=== PATIENT | female | born 1940 | race Caucasian/White ===

== ENCOUNTER 2016-09-26 11:30 | Day surgery (SDC) | payer MEDICARE, BC ==
[2016-09-21 10:34] LABS: HEMATOCRIT 40.9 % (36.0-47.0); HEMOGLOBIN 13.9 g/dL (12.0-15.5); HGB HCT DIFFERENCE 0.8; MEAN CORPUSCULAR HEMOGLOBIN 29.7 pg (27.0-33.4); MEAN CORPUSCULAR HGB CONC 34.1 g/dL (32.0-36.0); MEAN CORPUSCULAR VOLUME 87 fl (80-97); RED BLOOD COUNT 4.69 10^6/uL (3.72-5.28); RED CELL DISTRIBUTION WIDTH 13.7 % (11.5-14.0)
[2016-09-21 11:00] LABS: ANION GAP 12 (5-19); BLOOD UREA NITROGEN 16 mg/dL (7-20); CALCIUM 9.1 mg/dL (8.4-10.2); CARBON DIOXIDE 30 mmol/L (22-30); CHLORIDE 98 mmol/L (98-107); CREATININE RESULT 1.15 mg/dL (0.52-1.25); GLUCOSE 94 mg/dL (75-110); SODIUM 139.6 mmol/L (137-145)
[~2016-09-26 11:30] MED LIST: CEFAZOLIN SODIUM 1 GM in DEXTROSE 5%-WATER 50 ML IV PRN; LACTATED RINGERS 1000 ML IV PRN; LIDOCAINE 0.5% INJ-PF (5 MG/ML) 50 ML SDV SUBCUT PRN; LIDOCAINE 2% INJ (20 MG/ML) 20 ML MDV ONE
[2016-09-26] MEDS ORDERED: MICROFIBRILLAR COLLAGEN 1 GM PACK ONE (13:09)
[2016-09-26] MEDS ORDERED: LIDOCAINE 1%/EPINEPHRINE INJ 20 ML VIAL ONE (13:09)
[2016-09-26] MEDS ORDERED: FENTANYL CITRATE INJ/PF 100 MCG/2 ML AMPUL ONE ×2 (13:30)
[2016-09-26] MEDS ORDERED: DEXMEDETOMIDINE INJ 80 MCG/20 ML VIAL IV ONE (13:31)
[2016-09-26] MEDS ORDERED: PROPOFOL INJ 200 MG/20 ML VIAL IV ONE (13:31)
[2016-09-26] MEDS ORDERED: MIDAZOLAM 2 MG/2 ML INJ ONE (13:31)
[2016-09-26] MEDS ORDERED: MORPHINE SULFATE 10 MG/ML INJ ONE (13:32)
[2016-09-26] MEDS ORDERED: MORPHINE SULFATE 10 MG/ML INJ IV PRN (14:33)
[2016-09-26] MEDS ORDERED: MEPERIDINE HCL/PF INJ 25 MG/1 ML DISP.SYRIN IV PRN (14:33)
[2016-09-26] MEDS ORDERED: OXYCODONE-ACETAMINOPHEN 5-325 MG TABLET PO PRN ×4 (14:33→14:54)
[2016-09-26] MEDS ORDERED: FENTANYL CITRATE INJ/PF 100 MCG/2 ML AMPUL IV PRN ×3 (14:33)
[2016-09-26] MEDS ORDERED: PROMETHAZINE HCL INJ 25 MG/1 ML VIAL IV PRN ×2 (14:33)
[2016-09-26] MEDS ORDERED: DIPHENHYDRAMINE HCL 50 MG/ML VIAL IV PRN (14:33)
[2016-09-26] MEDS ORDERED: ONDANSETRON HCL INJ/PF 4 MG/2 ML SDV IV PRN (14:54)
--- NOTE | 2016-09-26 14:59 | PDOC DISCHARGE SUMMARY ---
Discharge Summary (SDC) - Discharge Final Diagnosis: Atypical ductal hyperplasia Date of Surgery: 09/26/16 Discharge Date: 09/26/16 Condition: Good Treatment or Instructions: Leave dressing on for 48 hours; resume preoperative medications; wear compressive bra or sports bra; make an appointment to see Dr. Martinez and approximately 1-3 weeks at also surgical clinic Prescriptions: Oxycodone HCl/Acetaminophen [Percocet 5-325 mg Tablet] 1 tab PO ASDIR PRN #15 tab PRN Reason: Discharge Activity: Activity As Tolerated Home Care Assistance: None Needed
--- NOTE | 2016-09-26 15:04 | Operative Report ---
Operative Report DATE OF SURGERY: 09/26/16 PREOPERATIVE DIAGNOSIS: Atypical ductal hyperplasia left breast POSTOPERATIVE DIAGNOSIS: Same OPERATION: Needle localized open left breast biopsy using ultrasound guidance SURGEON: PEARL ARANA SENIOR FIELD SERVICE ENGINEER: ELAN RASHEED ANESTHESIA: LMAC TISSUE REMOVED OR ALTERED: Left breast biopsy with needle and wire and clip COMPLICATIONS: None ESTIMATED BLOOD LOSS: scant INTRAOPERATIVE FINDINGS: See below below PROCEDURE: The patient was seen in the preoperative holding area to undergoing needle localized marking of the clip left in the left breast following stereotactically directed incisional mammotomy core biopsies for atypical ductal hyperplasia. The left breast was marked. The patient taken the operating room where LMAC anesthesia was induced. Left breast was exposed left arm abducted, needle and wire clipped at the patient's skin in the left breast in sterile fashion. Surgical plan surgical timeout were conducted. Real-time ultrasound guidance was used to tract the needle coming from the medial heading towards the more central lateral aspect of the left breast at the inferior quadrant 6 o'clock position approximately 5 cm inferior to the areola. Skin was anesthetized with 1% lidocaine without epinephrine. An approximately 5 cm transverse incision was made over the target location of the clip. A generous lumpectomy specimen was then second after the patient's breast using ultrasound guidance keeping the needle into the center of the dissection specimen . The dissection was performed with electrocautery. Once the specimen was removed, was labeled with sutures short in the superior position long lateral position. The specimen was sent to radiology was imaged and found to contain the needle, wire, and the clip. We felt the operation was complete. We checked carefully bleeding was none. Sponge and counts correct. Breasts closed with 3-0 Vicryl, Dermabond glue. Patient stopped procedure well, taken to recovery in stable condition. The physician assistant county engineer, Ms. Rasheed, provided assistance during this case by: retracting tissue, instillation of local anesthesia and closure of skin incisions.
--- NOTE | 2016-09-26 16:02 | EKG REPORT ---
SEVERITY:- ABNORMAL ECG - SINUS ARRHYTHMIA, RATE 54-84 PROBABLE INFERIOR INFARCT, AGE INDETERMINATE CONSIDER ANTERIOR INFARCT : Confirmed by: Darline Servin 26-Sep-2016 16:01:48
[2016-09-26 16:55] VITALS: BP 146/82
--- NOTE | 2016-09-26 17:45 | WOMENS IMAGING REPORT ---
EXAM DESCRIPTION: WIRE LOC MAMMO COMPLETED DATE/TIME: 09/26/2016 12:20 pm REASON FOR STUDY: N60.99 N60.99 UNSPECIFIED BENIGN MAMMARY DYSPLASIA OF UNSPECIFIED B Z79.899 [facility] (CURRENT) DRUG THERAPY atypical ductal hyperplasia on prior stereotactic biopsy COMPARISON: Stereotactic biopsy and post biopsy mammograms 08/30/2016 TECHNIQUE: The stereotactic clip in the left breast was localized mammographically using a grid mar ker. The skin of the breast was prepped in sterile fashion and local anesthesia was provided. The l ocalization needle was advanced to the target. Initial attempt from medial to lateral approach, the needle tip was over 1 cm from the clip. This needle was removed. The breast was reposition from a medial to lateral orientation in the grid paddle, the stereotactic c lip was localized mammographically using a grid marker. The skin was prepped in sterile fashion and local anesthesia was provided. The needle was advanced to the target. The tip was positioned adjace nt to the target and confirmed with two orthogonal views. Surgical dye was not injected for this proc edure. The wire was placed through the needle and the hook engaged. Post procedure mammogram demonst rates satisfactory position of the needle and wire. Specimen radiograph demonstrates the intact localization wire as well as the targeted lesion within t he biopsy specimen. LIMITATIONS: None. FINDINGS: Procedure as above. Pathology: Pending. TECHNICAL DOCUMENTATION: JOB ID: [id number] [employer]- All Rights Reserved
--- NOTE | 2016-09-27 08:28 | WOMENS IMAGING REPORT ---
EXAM DESCRIPTION: BREAST SPECIMEN COMPLETED DATE/TIME: 09/26/2016 2:58 pm REASON FOR STUDY: N60.99 N60.99 UNSPECIFIED BENIGN MAMMARY DYSPLASIA OF UNSPECIFIED B Z79.899 [facility] (CURRENT) DRUG THERAPY COMPARISON: None. TECHNIQUE: Specimen radiograph from breast procedure performed in the operating room. LIMITATIONS: None. FINDINGS: Specimen radiograph from breast procedure performed in the operating room. Please see procedure note for details and final pathology. TECHNICAL DOCUMENTATION: JOB ID: [id number]
== END 2016-09-26 16:45 | disposition home or self-care (01) ==
LOC: OROUT 11:30
PROVIDERS: ATTEND Surgery
PROC: 0HBU0ZX Excision of Left Breast, Open Approach, Diagnostic (ICD-10-PCS; principal; 2016-09-26 14:00)
DX: C50.912 Malignant neoplasm of unspecified site of left female breast (principal); G47.33 Obstructive sleep apnea (adult) (pediatric); I12.9 Hypertensive chronic kidney disease with stage 1 through stage 4 chronic kidney disease, or unspecified chronic kidney disease; N18.3 Chronic kidney disease, stage 3 (moderate); E78.00 Pure hypercholesterolemia, unspecified; Z79.899 Other long term (current) drug therapy; Z79.82 Long term (current) use of aspirin
CPT/HCPCS: 36415; 85027; 80048; 88307 ×2; 93005; 93010; 19281; 76098; 19101; J2250; J3490 ×3; J0690; J3010; J2704; 400; J2270

== ENCOUNTER 2016-10-31 09:04 | Inpatient (IN) | payer MEDICARE, BC ==
[2016-10-29 13:34] LABS: HEMATOCRIT 41.8 % (36.0-47.0); HEMOGLOBIN 14.1 g/dL (12.0-15.5); HGB HCT DIFFERENCE 0.5; MEAN CORPUSCULAR HEMOGLOBIN 29.6 pg (27.0-33.4); MEAN CORPUSCULAR HGB CONC 33.7 g/dL (32.0-36.0); MEAN CORPUSCULAR VOLUME 88 fl (80-97); RED BLOOD COUNT 4.75 10^6/uL (3.72-5.28); RED CELL DISTRIBUTION WIDTH 13.3 % (11.5-14.0); WHITE BLOOD COUNT 5.6 10^3/uL (4.0-10.5)
[2016-10-29 13:52] LABS: ANION GAP 11 (5-19); BLOOD UREA NITROGEN 16 mg/dL (7-20); CALCIUM 9.2 mg/dL (8.4-10.2); CARBON DIOXIDE 31 mmol/L (22-30); CHLORIDE 99 mmol/L (98-107); CREATININE RESULT 1.22 mg/dL (0.52-1.25); GLUCOSE 80 mg/dL (75-110); POTASSIUM 5.2 mmol/L (3.6-5.0); SODIUM 140.6 mmol/L (137-145)
--- NOTE | 2016-10-29 18:16 | EKG REPORT ---
SEVERITY:- ABNORMAL ECG - ACCELERATED JUNCTIONAL ESCAPE RHYTHM BORDERLINE LEFT AXIS DEVIATION BORDERLINE R WAVE PROGRESSION, ANTERIOR LEADS NONSPECIFIC T ABNORMALITIES, LATERAL LEADS : Confirmed by: Jamie Watts MD 29-Oct-2016 18:15:41
[~2016-10-31 09:04] MED LIST changes: +ACETAMINOPHEN 325 MG TABLET PO PRN; -LACTATED RINGERS 1000 ML IV PRN; -LIDOCAINE 2% INJ (20 MG/ML) 20 ML MDV ONE; +LIDOCAINE 4% TRANSPARENT DRESSING 5 GM KIT TP PRN; +NORMAL SALINE 1000 ML (RENAL PATIENTS) IV PRN
[2016-10-31] MEDS ORDERED: LIDOCAINE 1%/EPINEPHRINE INJ 20 ML VIAL ONE (09:53)
[2016-10-31] MEDS ORDERED: MICROFIBRILLAR COLLAGEN 1 GM PACK ONE (09:53)
[2016-10-31] MEDS ORDERED: METHYLENE BLUE INJ/PF 10 MG/1 ML SDV ONE (09:54)
[2016-10-31] MEDS ORDERED: GLYCOPYRROLATE INJ 0.4 MG/2 ML VIAL ONE (10:25)
[2016-10-31] MEDS ORDERED: DEXAMETHASONE SOD PHOSPHATE INJ 4 MG/1 ML VIAL ONE (10:25)
[2016-10-31] MEDS ORDERED: NEOSTIGMINE METHYLSULFATE 10 MG/10 ML VIAL ONE (10:25)
[2016-10-31] MEDS ORDERED: PHENYLEPHRINE HCL INJ/PF 10 MG/1 ML SDV ONE (10:25)
[2016-10-31] MEDS ORDERED: ONDANSETRON HCL INJ/PF 4 MG/2 ML SDV ONE (10:25)
[2016-10-31] MEDS ORDERED: SUCCINYLCHOLINE CHLORIDE INJ 200 MG/10 ML VIAL ONE (10:25)
[2016-10-31] MEDS ORDERED: FENTANYL CITRATE INJ/PF 250 MCG/5 ML AMPULE ONE (13:22)
[2016-10-31] MEDS ORDERED: PROPOFOL INJ 200 MG/20 ML VIAL IV ONE (13:23)
[2016-10-31] MEDS ORDERED: DEXMEDETOMIDINE INJ 80 MCG/20 ML VIAL IV ONE (13:23)
[2016-10-31] MEDS ORDERED: MIDAZOLAM 2 MG/2 ML INJ ONE (13:23)
[2016-10-31] MEDS ORDERED: OXYCODONE-ACETAMINOPHEN 5-325 MG TABLET PO PRN ×3 (15:05→16:13)
[2016-10-31] MEDS ORDERED: DIPHENHYDRAMINE HCL 50 MG/ML VIAL IV PRN (15:05)
[2016-10-31] MEDS ORDERED: MORPHINE SULFATE 10 MG/ML INJ IV PRN ×2 (15:05→16:13)
[2016-10-31] MEDS ORDERED: PROMETHAZINE HCL INJ 25 MG/1 ML VIAL IV PRN ×2 (15:05)
[2016-10-31] MEDS ORDERED: FENTANYL CITRATE INJ/PF 100 MCG/2 ML AMPUL IV PRN ×3 (15:05)
[2016-10-31] MEDS ORDERED: MEPERIDINE HCL/PF INJ 25 MG/1 ML DISP.SYRIN IV PRN (15:05)
[2016-10-31] MEDS ORDERED: ONDANSETRON HCL INJ/PF 4 MG/2 ML SDV IV PRN (16:13)
--- NOTE | 2016-10-31 16:13 | Operative Report ---
Operative Report DATE OF SURGERY: 10/31/16 PREOPERATIVE DIAGNOSIS: Poorly differentiated invasive left breast cancer, ER positive, AK positive, HER-2 negative POSTOPERATIVE DIAGNOSIS: same OPERATION: 1. Gans lymph node biopsy 6 left axilla. 2. Left mastectomy, with drain placement SURGEON: PEARL ARANA WIND TURBINE ERECTOR: ELAN DOLL ANESTHESIA: GA TISSUE REMOVED OR ALTERED: Gans lymph nodes left axilla 6; left breast COMPLICATIONS: None ESTIMATED BLOOD LOSS: 25 mL INTRAOPERATIVE FINDINGS: See below PROCEDURE: The patient was seen in the preoperative holding area after having gone to the radiology suite for lymphoscintigraphy of the left axilla. Oozing the neoprobe at bedside, we determined that there was radionuclide activity in the axilla consistent with successful uptake. Furthermore the post injection imaging showed mapping of at least 2 sentinel nodes into the left axilla. The patient was subsequent taken to the operating room were general anesthesia was induced. The left arm was abducted left breast exposed. We proceeded to inject the left breast at the areola border 2 o'clock position with approximately 2 mL of methylene blue. The left breast was massaged for 10 minutes. The left breast axilla chest wall were all prepped and draped in a sterile fashion Surgical plan and surgical timeout were conducted. Marking the breast for a planned mastectomy. An elliptical marking was made on the breast encompassing the areola as well as the previous infra-areola lumpectomy incision. A incision was made in the extreme lateral aspect of the planned mastectomy incision. We proceeded with sentinel lymph node harvest. Using the dual mapping technique we harvested a total of 6 sentinel lymph nodes. All these lymph nodes were hot and blue. They were resected in the order they were encountered during this dissection from the lateral aspect of the axilla. Gans lymph node 1: Hot, blue, in vivo count 6536 ex vivo count 36,816 Lymph node 2 ; hot, blue, in vivo count 1771 ex vivo count 9676 Lymph node 3: Blue hot in vivo count 3053 ex vivo count 1 478 Lymph node f4. Blue hot in vivo count 3103, ex vivo count 5989 Lymph node 5: Blue, hot in vivo count 6715, ex vivo count 5989 Gans lymph node 6: Blue hot, ex vivo count 3015; at this point, felt the sentinel lymph node biopsy portion of the procedure was complete. Background counts were negligible. We then performed the mastectomy. The breast was incised at the markings previously tablets. Superior and inferior skin flaps were raised of appropriate thickness. The breast was taken off the chest wall from the sub- pectoral down to the sternum medially, and off the edge of the pectoralis muscle laterally. We took the breast off inferiorly down to the level of the serratus anterior muscle. Specimen was labeled with a long suture in the lateral position short suture in the superior position. Specimen were sent to pathology for permanent analysis. We did hear back from Dr. Mitchell who felt the mastectomy specimen had a least a 1 cm margin from the previous biopsy cavity. A drain was placed in the inferior skin flap, secured with 2-0 Prolene suture, and the mastectomy wound closed with 2-0 Vicryl suture. Postop procedure well appropriate dressings applied with Dermabond skin appliqu. Patient was extubated and taken recovery in stable condition Michelle garcia and Shey Fermin
[2016-10-31] MEDS ORDERED: RINGERS SOLUTION,LACTATED 1,000 ML IV PRN (16:14)
[2016-10-31] MEDS ORDERED: NORMAL SALINE 1000 ML 1,000 ML IV PRN (17:55)
[2016-10-31] MEDS ORDERED: INFLUENZA ADLT QUAD (36MOS+) 2016-17 VAC 0.5 ML SYR IM PRN (18:49)
--- NOTE | 2016-11-01 09:47 | DISCHARGE SUMMARY E ---
Discharge Summary NAME: YENIFER MARTIN : 1940 AGE: 76Y ADMITTED: 10/31/2016 DISCHARGED: 11/01/2016 REASON FOR ADMISSION: Left mastectomy. HOSPITAL COURSE: The patient is a 76-year-old white female status post left breast lumpectomy for ADH; final path returned poorly invasive left breast carcinoma with a positive margin. The patient is now brought back to [facility] for completion mastectomy and sentinel node biopsy. The patient underwent left axillary lymphoscintigraphy followed by left axillary sentinel node biopsy x6 and left mastectomy. She tolerated the procedure well. There were no post procedure complications. On the following morning, she was doing well and felt ready for discharge home. FINAL DIAGNOSES: Invasive left breast cancer, status post sentinel lymph node biopsy and left mastectomy. DISPOSITION: The patient was discharged home in the care of her family. Follow up with Dr. Martinez, [facility] in 1 week. She will be instructed on drain care. She will take Tylenol or Motrin as needed for pain. DICTATING PHYSICIAN: PEARL MARTINEZ M.D. [id number] PHY#: [id number] ID: [id number] JOB#: [id number] ACCT: [id number] cc:PEARL MARTINEZ M.D. > MTDD
[2016-11-01 10:41] VITALS: BP 104/53
== END 2016-11-01 11:00 | disposition home or self-care (01) | DRG 581 ==
LOC: INOR 09:04 → 4S 17:16
PROVIDERS: ADMIT Surgery; ATTEND Surgery
PROC: 07B60ZZ Excision of Left Axillary Lymphatic, Open Approach (ICD-10-PCS; 2016-10-31)
PROC: 0HTU0ZZ Resection of Left Breast, Open Approach (ICD-10-PCS; principal; 2016-10-31 12:45)
DX: C50.912 Malignant neoplasm of unspecified site of left female breast (principal); I12.9 Hypertensive chronic kidney disease with stage 1 through stage 4 chronic kidney disease, or unspecified chronic kidney disease; N18.3 Chronic kidney disease, stage 3 (moderate); E78.5 Hyperlipidemia, unspecified; G47.33 Obstructive sleep apnea (adult) (pediatric); Z17.0 Estrogen receptor positive status [ER+]; Z79.82 Long term (current) use of aspirin
CPT/HCPCS: 1610; 36415; 78195; 80048; 84132; 85027; 88307; 88341; 88342; 93005; 93010; 88329; A9541; J0330; J0690; J1100; J2250; J2370; J2405; J2704; J3010; J3490; Q9968

== ENCOUNTER → 2017-11-19 | Outpatient (CLI) | payer MEDICARE, BC ==
--- NOTE | 2017-11-19 11:33 | WOMENS IMAGING REPORT ---
EXAM DESCRIPTION: BONE DENSITY HIP/SPINE COMPLETED DATE/TIME: 11/19/2017 10:37 am REASON FOR STUDY: ASYMPTOMATIC MENOPAUSAL STATE; Z78.0 Z78.0 ASYMPTOMATIC MENOPAUSAL STATE COMPARISON: 02/23/2011 TECHNIQUE: Dual-Energy X-ray Absorptiometry (DEXA) of the AP Spine and Hip. LIMITATIONS: None. FINDINGS: LUMBAR SPINE: The bone mineral density (BMD) measured from L1-L4 in the AP projection correlates with a T-score of -0.2, which is normal as defined by the World Health Organization. +2.1% change since prior study. HIP: The bone mineral density (BMD) measured in the left hip correlates with a T-score of -2.5 in the femo ral neck, which is borderline osteoporosis as defined by the World Health Organization. -9.4% change since prior study. IMPRESSION: 1. LUMBAR SPINE: NORMAL. 2. HIP: Borderline osteoporosis. COMMENT: The World Health Organization defines low BMD as follows: T-score: Normal: Greater than -1.0 Osteopenia: Between -1.0 and -2.5 Osteoporosis: Less than -2.5 without fractures Established osteoporosis: Less than -2.5 with fractures In general, you may wish to consider: Diagnosis Treatment Follow-up DEXA Normal BMD Prevention 2-3 years Osteopenia Prevention/Therapy 1-2 years Osteoporosis Therapy Yearly TECHNICAL DOCUMENTATION: JOB ID: [id number] [employer]- All Rights Reserved Reading location - IP/workstation name: [email or web address]
== END ==
LOC: WI 09:43
PROVIDERS: ATTEND Family Medicine
DX: Z78.0 Asymptomatic menopausal state (principal); M81.0 Age-related osteoporosis without current pathological fracture
CPT/HCPCS: 77080

== ENCOUNTER → 2018-02-13 | Outpatient (CLI) | payer MEDICARE, BC ==
--- NOTE | 2018-02-13 15:01 | RADIOLOGY REPORT (SQ) ---
EXAM DESCRIPTION: HIP RIGHT AP/LATERAL COMPLETED DATE/TIME: 02/13/2018 11:55 am REASON FOR STUDY: PAIN IN R HIP M25.551 PAIN IN RIGHT HIP COMPARISON: None. NUMBER OF VIEWS: Two views. TECHNIQUE: AP pelvis and additional frog-leg view of the right hip. LIMITATIONS: None. FINDINGS: MINERALIZATION: Normal. RIGHT HIP: Internal fixation of a prior fracture. There is long medullary erik extending almost to th e knee and there is a long cannulated screw extending through the femoral neck. Joint space is maint ained. No acute abnormality. LEFT HIP: No fracture or dislocation. No worrisome bone lesions. PUBIS AND ISCHIUM: No fracture. PELVIS: No fracture. SACRUM: No fracture or dislocation. No worrisome bone lesions. LOWER LUMBAR SPINE: No fracture or dislocation. No worrisome bone lesions. No significant disc disea se. SOFT TISSUES: No findings. OTHER: No other significant finding. IMPRESSION: Internal fixation of a prior right hip fracture. No acute abnormality. TECHNICAL DOCUMENTATION: JOB ID: [id number] [employer]- All Rights Reserved Reading location - IP/workstation name: [email or web address]
== END ==
LOC: RAD 11:19
PROVIDERS: ATTEND Internal Medicine
DX: M25.551 Pain in right hip (principal)

== ENCOUNTER → 2018-11-06 | Outpatient (CLI) | payer MEDICARE, BC ==
--- NOTE | 2018-11-06 13:13 | XCELERA REPORT ---
[address] [place] [facility] [address] Lower Extremity Venous Evaluation Procedure: Color flow and duplex imaging of the veins of the left lower extremity as well as the right Common Femoral vein. Right Sided Venous Evaluation The right common femoral vein is fully compressible. Spontaneous and phasic flow is present in the right common femoral vein. Left Sided Venous Evaluation Normal vessel filling wall to wall, compression and augmentation as well as Colour flow down to the infrageniculate veins. Interpretation Summary No duplex evidence of DVT or obstruction in the left lower extremity nor in the right Common Femoral vein. Name: YENIFER MARTIN Age: 78 yrs Gender: Female : 1940 Patient Status: Outpatient Patient Location: Study Date: 11/06/2018 12:30 PM Reason For Study: LLE SWELLING Ordering Physician: SERINA STOKES Performed By: Eva Joya : SERINA STOKES > Derrell Reagan
== END ==
LOC: SP 11:39
PROVIDERS: ATTEND Orthopaedic Surgery
DX: R22.42 Localized swelling, mass and lump, left lower limb (principal)
CPT/HCPCS: 93971

== ENCOUNTER → 2019-03-04 | Outpatient (CLI) | payer MEDICARE, BC ==
--- NOTE | 2019-03-04 10:00 | WOMENS IMAGING REPORT ---
EXAM DESCRIPTION: BONE DENSITY HIP/SPINE COMPLETED DATE/TIME: 03/04/2019 9:24 am REASON FOR STUDY: M81.0 AGE-RELATED OSTEOPOROSIS WITHOUT CURRENT PATHOLOGICAL FRACTURE M81.0 AGE-RE LATED OSTEOPOROSIS W/O CURRENT PATHOLOGICAL FRAC COMPARISON: 11/19/2017 TECHNIQUE: Dual-Energy X-ray Absorptiometry (DEXA) of the AP Spine and Hip. LIMITATIONS: None. FINDINGS: LUMBAR SPINE: The bone mineral density (BMD) measured from L1-L4 in the AP projection correlates with a T-score of 0.2, which is normal as defined by the World Health Organization. HIP: The bone mineral density (BMD) measured in the left hip correlates with a T-score of -1.6, which is o steopenia as defined by the World Health Organization. IMPRESSION: 1. LUMBAR SPINE: NORMAL. 2. HIP: OSTEOPENIA. COMMENT: The World Health Organization defines low BMD as follows: T-score: Normal: Greater than -1.0 Osteopenia: Between -1.0 and -2.5 Osteoporosis: Less than -2.5 without fractures Established osteoporosis: Less than -2.5 with fractures In general, you may wish to consider: Diagnosis Treatment Follow-up DEXA Normal BMD Prevention 2-3 years Osteopenia Prevention/Therapy 1-2 years Osteoporosis Therapy Yearly TECHNICAL DOCUMENTATION: JOB ID: [id number] [employer]- All Rights Reserved Reading location - IP/workstation name: [email or web address]
== END ==
LOC: WI 08:51
PROVIDERS: ATTEND Physician Assistant Medical
DX: M81.0 Age-related osteoporosis without current pathological fracture (principal)
CPT/HCPCS: 77080

== ENCOUNTER 2019-05-30 18:48 | Emergency (ER) | payer MEDICARE, BC ==
--- NOTE | 2019-05-30 20:21 | ER Document Report ---
ED Medical Screen (RME) - General Chief Complaint: General Weakness Stated Complaint: WEAKNESS Time Seen by Provider: 05/30/19 20:14 Primary Care Provider: KIRAN BENITES PA-C [Primary Care Provider] - Follow up as needed Mode of Arrival: Ambulatory Information source: Patient, Relative Notes: 78-year-old female presents to ED for complaint of just not feeling right for the last 2 to 3 days and feeling much worse today. She states she been feeling real tired sleepy and just does not feel good. She states this come more gradually. She states she was recently seen and put on potassium for low potassium by her oncologist and then her primary care put on some more potassium. She does have a history of breast cancer with surgery and chemotherapy. She also has high blood pressure cholesterol and anxiety a hip fracture which she did have surgery for daughter states she is in stage III kidney failure but is not on dialysis yet. Patient is alert and oriented respirations regular and unlabored speaking in full sentences. I have greeted and performed a rapid initial assessment of this patient. A comprehensive ED assessment and evaluation of the patient, analysis of test results and completion of medical decision making process will be conducted by an additional ED providers. TRAVEL OUTSIDE OF THE [place] IN LAST 30 DAYS: No - Related Data Allergies/Adverse Reactions: No Known Allergies Allergy (Verified 05/30/19 20:06) Past Medical History - Past Medical History Cardiac Medical History: Reports: Hx Coronary Artery Disease, Hx Hypercholesterolemia, Hx Hypertension - on meds, Hx Heart Murmur Denies: Hx Atrial Fibrillation, Hx Congestive Heart Failure, Hx Heart Attack, Hx Peripheral Vascular Disease, Hx Pulmonary Embolism Pulmonary Medical History: Reports: Hx Asthma - child, Hx Sleep Apnea - CPAP Denies: Hx Bronchitis, Hx COPD, Hx Pneumonia, Hx Respiratory Failure, Hx Tuberculosis Neurological Medical History: Renal/ Medical History: Denies: Hx Ovarian Cysts, Hx Pelvic Inflammatory Disease Malignancy Medical History: Reports: Hx Breast Cancer. Denies: Hx Cervical Cancer, Hx Leukemia, Hx Lung Cancer, Hx Ovarian Cancer GI Medical History: Reports: Hx Gastroesophageal Reflux Disease. Denies: Hx Crohn's Disease, Hx Hepatitis, Hx Hiatal Hernia, Hx Irritable Bowel, Hx Liver Failure, Hx Pancreatitis, Hx Ulcer Musculoskeltal Medical History: Reports Hx Arthritis, Denies Hx Fibromyalgia, Denies Hx Muscular Dystrophy Psychiatric Medical History: Reports: Hx Depression Denies: Hx Bipolar Disorder, Hx Post Traumatic Stress Disorder, Hx Schizophrenia Traumatic Medical History: Reports: Hx Fractures - hx rt hip fx-erik right hip Infectious Medical History: Denies: Hx Hepatitis, Hx HIV Past Surgical History: Denies: Hx Appendectomy, Hx Bowel Surgery, Hx Section, Hx Cholecystectomy, Hx Colostomy, Hx Coronary Artery Bypass Graft, Hx Gastric Bypass Surgery, Hx Herniorrhaphy, Hx Hysterectomy, Hx Mastectomy, Hx Open Heart Surgery, Hx Pacemaker, Hx Tonsillectomy, Hx Tubal Ligation - Immunizations Hx Diphtheria, Pertussis, Tetanus Vaccination: Yes Physical Exam - Vital signs Vitals: Temp Pulse Resp BP Pulse Ox 98.9 F 103 H 18 140/61 H 92 05/30/19 18:53 05/30/19 18:53 05/30/19 18:53 05/30/19 18:53 05/30/19 18:53 Course - Vital Signs Vital signs: Temp Pulse Resp BP Pulse Ox 98.9 F 103 H 18 140/61 H 92 05/30/19 18:53 05/30/19 18:53 05/30/19 18:53 05/30/19 18:53 05/30/19 18:53 Doctor's Discharge - Discharge Referrals: KIRAN BENITES PA-C [Primary Care Provider] - Follow up as needed
[2019-05-30 20:46] LABS: ABSOLUTE EOSINOPHILS # (AUTO) 0.2 10^3/uL (0.0-0.6); ABSOLUTE LYMPHOCYTES (AUTO) 1.7 10^3/uL (0.5-4.7); ABSOLUTE MONOCYTES (AUTO) 0.8 10^3/uL (0.1-1.4); ABSOLUTE NEUT (AUTO) 5.6 10^3/uL (1.7-8.2); BASOPHILS % (AUTO) 0.4 % (0-2); EOSINOPHILS % (AUTO) 2.7 % (0-6); HEMATOCRIT 45.2 % (36.0-47.0); HEMOGLOBIN 15.3 g/dL (12.0-15.5); LYMPHOCYTES % (AUTO) 20.7 % (13-45); MEAN CORPUSCULAR HEMOGLOBIN 29.6 pg (27.0-33.4); MEAN CORPUSCULAR HGB CONC 33.8 g/dL (32.0-36.0); MEAN CORPUSCULAR VOLUME 88 fl (80-97); MONOCYTES % (AUTO) 9.8 % (3-13); PLATELET COUNT 187 10^3/uL (150-450); RED BLOOD COUNT 5.16 10^6/uL (3.72-5.28); RED CELL DISTRIBUTION WIDTH 13.4 % (11.5-14.0); SEGMENTED NEUTROPHILS % (AUTO) 66.4 % (42-78); TOTAL CELLS COUNTED % (AUTO) 100 %; WHITE BLOOD COUNT 8.4 10^3/uL (4.0-10.5)
[2019-05-30 21:00] LABS: ALBUMIN 4.7 g/dL (3.5-5.0); ALKALINE PHOSPHATASE 74 U/L (38-126); ANION GAP 9 (5-19); ASPARTATE AMINO TRANSFERASE 28 U/L (14-36); BILIRUBIN,DIRECT 0.3 mg/dL (0.0-0.4); BILIRUBIN,TOTAL 0.6 mg/dL (0.2-1.3); BLOOD UREA NITROGEN 14 mg/dL (7-20); CALCIUM 9.5 mg/dL (8.4-10.2); CARBON DIOXIDE 30 mmol/L (22-30); CHLORIDE 99 mmol/L (98-107); GLUCOSE 88 mg/dL (75-110); POTASSIUM 4.6 mmol/L (3.6-5.0); TOTAL PROTEIN 8.3 g/dL (6.3-8.2)
[2019-05-31 01:08] LABS: APPEARANCE,URINE CLEAR; BILIRUBIN,URINE NEGATIVE (NEGATIVE); COLOR,URINE YELLOW; GLUCOSE, URINE NEGATIVE (NEGATIVE); KETONES,URINE NEGATIVE (NEGATIVE); LEUKOCYTE ESTERASE,URINE NEGATIVE (NEGATIVE); NITRITE,URINE NEGATIVE (NEGATIVE); PROTEIN,URINE NEGATIVE (NEGATIVE); URINE SPECIFIC GRAVITY 1.013; UROBILINOGEN,URINE NEGATIVE mg/dL (<2.0)
--- NOTE | 2019-05-31 01:46 | ER Document Report ---
ED General - General Chief Complaint: General Weakness Stated Complaint: WEAKNESS Time Seen by Provider: 05/30/19 20:14 Primary Care Provider: KIRAN BENITES PA-C [ALLIED HEALTH PROFESSIONAL] - Follow up as needed Mode of Arrival: Ambulatory Notes: Patient is an 78 year old female that comes emergency department for chief complaint of generally not feeling right for the past 2 days. She states that she felt less energy than usual, felt vaguely weak as well. She states that she was recently seen by her oncologist and they told her that her potassium was too low, she states that she filled and took her potassium, she took multiple doses today, she states after arrival to the emergency department while she was waiting suddenly her abnormal feelings and weakness suddenly resolved. She denies dizziness, lightheadedness, chest pain, shortness of breath, dyspnea on exertion, abdominal pain, vomiting. She does admit to frequent loose stools including 3 over the past day which she states this is normal for her. She is not on a diuretic. Past medical history of breast cancer with surgery and chemotherapy completed, hypertension, hyperlipidemia, anxiety, and chronic kidney disease. Daughter at bedside. TRAVEL OUTSIDE OF THE [place] IN LAST 30 DAYS: No - Related Data Allergies/Adverse Reactions: No Known Allergies Allergy (Verified 05/30/19 20:06) Past Medical History - General Information source: Patient, Relative - Social History Smoking Status: Never Smoker Frequency of alcohol use: None Drug Abuse: None Family History: Reviewed & Not Pertinent Patient has suicidal ideation: No Patient has homicidal ideation: No - Past Medical History Cardiac Medical History: Reports: Hx Coronary Artery Disease, Hx Hypercholesterolemia, Hx Hypertension - on meds, Hx Heart Murmur Denies: Hx Atrial Fibrillation, Hx Congestive Heart Failure, Hx Heart Attack, Hx Peripheral Vascular Disease, Hx Pulmonary Embolism Pulmonary Medical History: Reports: Hx Asthma - child, Hx Sleep Apnea - CPAP Denies: Hx Bronchitis, Hx COPD, Hx Pneumonia, Hx Respiratory Failure, Hx Tuberculosis Neurological Medical History: Renal/ Medical History: Denies: Hx Ovarian Cysts, Hx Pelvic Inflammatory Di sease Malignancy Medical History: Reports: Hx Breast Cancer. Denies: Hx Cervical Cancer, Hx Leukemia, Hx Lung Cancer, Hx Ovarian Cancer GI Medical History: Reports: Hx Gastroesophageal Reflux Disease. Denies: Hx Crohn's Disease, Hx Hepatitis, Hx Hiatal Hernia, Hx Irritable Bowel, Hx Liver Failure, Hx Pancreatitis, Hx Ulcer Musculoskeletal Medical History: Reports Hx Arthritis, Denies Hx Fibromyalgia, Denies Hx Muscular Dystrophy Psychiatric Medical History: Reports: Hx Depression Denies: Hx Bipolar Disorder, Hx Post Traumatic Stress Disorder, Hx Schizophrenia Traumatic Medical History: Reports: Hx Fractures - hx rt hip fx-erik right hip Infectious Medical History: Denies: Hx Hepatitis, Hx HIV Past Surgical History: Reports: Hx Breast Surgery - left mastectomy, Hx Orthopedic Surgery - right hip repair. Denies: Hx Appendectomy, Hx Bowel Surgery, Hx Section, Hx Cholecystectomy, Hx Colostomy, Hx Coronary Artery Bypass Graft, Hx Gastric Bypass Surgery, Hx Herniorrhaphy, Hx Hysterectomy, Hx Mastectomy, Hx Open Heart Surgery, Hx Pacemaker, Hx Tonsillectomy, Hx Tubal Ligation - Immunizations Hx Diphtheria, Pertussis, Tetanus Vaccination: Yes Review of Systems - Review of Systems Constitutional: See HPI EENT: No symptoms reported Cardiovascular: No symptoms reported Respiratory: No symptoms reported Gastrointestinal: No symptoms reported Genitourinary: No symptoms reported Female Genitourinary: No symptoms reported Musculoskeletal: No symptoms reported Skin: No symptoms reported Hematologic/Lymphatic: No symptoms reported Neurological/Psychological: No symptoms reported Physical Exam - Vital signs Vitals: Temp Pulse Resp BP Pulse Ox 98.9 F 103 H 18 140/61 H 92 05/30/19 18:53 05/30/19 18:53 05/30/19 18:53 05/30/19 18:53 05/30/19 18:53 - Notes Notes: GENERAL: Alert, interacts well. No acute distress. Smiling, talkative, well- appearing. HEAD: Normocephalic, atraumatic. EYES: Pupils equal, round, and reactive to light. Extraocular movements intact. ENT: Oral mucosa moist, tongue midline. Oropharynx unremarkable. Airway patent. LUNGS: Clear to auscultation bilaterally, no wheezes, rales, or rhonchi. No respiratory distress. HEART: Regular rate and rhythm. No murmur ABDOMEN: Soft, non-tender. Non-distended. Bowel sounds present in all 4 quadrants. GENITOURINARY: Deferred EXTREMITIES: Moves all 4 extremities spontaneously. No edema, normal radial and dorsalis pedis pulses bilaterally. No cyanosis. BACK: no cervical, thoracic, lumbar midline tenderness. No saddle anesthesia, normal distal neurovascular exam. Moves all extremities in full range of motion. NEUROLOGICAL: Alert and oriented x3. Normal speech. Cranial nerves II through XII grossly intact. PSYCH: Normal affect, normal mood. SKIN: Warm, dry, normal turgor. No rashes or lesions noted. Course - Re-evaluation Re-evalutation: Patient actually looks great. On my evaluation she is smiling, talkative, well- appearing. She has no complaints. She states her symptoms completely resolved after arriving to the emergency department. She is very concerned about what h er potassium level is, this is 4.6, she has been self-medicating for this. CBC, chemistry otherwise unremarkable, urinalysis unremarkable, vital signs unremarkable on my evaluation. Patient denying any chest pain, has no neurological deficits, has no complaints, is asking to leave. He was provided with a copy of her chemistry on request. Discussed with patient and daughter, they have close follow-up established, they will return if she worsens in any way. Stable time of discharge. - Vital Signs Vital signs: Temp Pulse Resp BP Pulse Ox 97.9 F 87 18 165/73 H 97 05/31/19 01:49 05/31/19 01:49 05/31/19 01:49 05/31/19 01:49 05/31/19 01:49 - Laboratory Result Diagrams: 05/30/19 20:23 05/30/19 20:23 Laboratory results interpreted by me: 05/30/19 05/31/19 20:23 00:58 Est GFR (MDRD) Non-Af 50 L Total Protein 8.3 H Urine Blood SMALL H Discharge - Discharge Clinical Impression: Weakness Diarrhea Qualifiers: Diarrhea type: unspecified type Qualified Code(s): R19.7 - Diarrhea, unspecified Condition: Stable Disposition: HOME, SELF-CARE Additional Instructions: Your work-up today and your evaluation at this time is reassuring. I suspect your potassium has been getting low because of your diarrhea, I suspect her diarrhea is from malabsorption, I recommend that you take [id number] probiotics to help with this. Follow-up with your primary care provider for additional evaluation management of diarrhea and low potassium. Return for any concerning symptoms including severe muscle cramps, abdominal pain, dizziness, passing out, palpitations, or any other concerning symptoms. Referrals: KIRAN BENITES PA-C [ALLIED HEALTH PROFESSIONAL] - Follow up as needed
[2019-05-31 01:52] VITALS: BP 165/73
== END 2019-05-31 01:52 | disposition home or self-care (01) ==
LOC: ER 18:48
DX: R53.1 Weakness (principal); R19.7 Diarrhea, unspecified; I10 Essential (primary) hypertension; I25.10 Atherosclerotic heart disease of native coronary artery without angina pectoris; Z85.3 Personal history of malignant neoplasm of breast; Z92.21 Personal history of antineoplastic chemotherapy
CPT/HCPCS: 36415; 51701; 80053; 81001; 85025; 99284

== ENCOUNTER → 2020-06-22 | Outpatient (CLI) | payer MEDICARE, BC ==
[2020-06-22 13:01] LABS: ANION GAP 10 (5-19); BLOOD UREA NITROGEN 12 mg/dL (7-20); CALCIUM 8.6 mg/dL (8.4-10.2); CARBON DIOXIDE 29 mmol/L (22-30); CHLORIDE 100 mmol/L (98-107); GLUCOSE 102 mg/dL (75-110)
== END ==
LOC: OD 11:17
PROVIDERS: ATTEND Internal Medicine Nephrology
DX: N18.3 Chronic kidney disease, stage 3 (moderate) (principal)
CPT/HCPCS: 36415; 80048